=== PATIENT | male | born 1975 | race Two or more races ===

== ENCOUNTER 2016-08-21 15:49 | Emergency (ER) | payer BC ==
[~2016-08-21] VITALS: Ht 175.3 cm; Wt 102.1 kg
[2016-08-21] MEDS ORDERED: HYDROcodone-ACET 10/325MG TAB PO ONE (16:15)
[2016-08-21 17:14] VITALS: BP 129/77
[2016-08-21] MEDS ORDERED: BACITRACIN TOP OINT 1 UD PKG TOP ONE (17:15)
== END 2016-08-21 16:49 | disposition home or self-care (01) ==
LOC: ER 15:53
DX: S61.303A Unspecified open wound of left middle finger with damage to nail, initial encounter (principal); W22.8XXA Striking against or struck by other objects, initial encounter; Y93.89 Activity, other specified; Y99.8 Other external cause status; Y92.89 Other specified places as the place of occurrence of the external cause
CPT/HCPCS: 73140